=== PATIENT | female | born 1985 | race Caucasian/White ===

== ENCOUNTER 2017-03-15 14:47 | Emergency (ER) | payer MEDICAID, OTHER ==
[~2017-03-15] VITALS: Ht 160 cm; Wt 82.5 kg
[~2017-03-15 14:47] MED LIST: CALC600T11 PO; FERR240T9 PO; PRENAT PO
[2017-03-15 14:55] VITALS: Ht 160 cm; Wt 82.5 kg
[2017-03-15] MEDS ORDERED: ACETAMINOPHEN 325 MG TAB PO ONE (16:00)
[2017-03-15] MEDS ORDERED: IBUP-1542 PO (16:50)
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
== END 2017-03-15 17:03 | disposition home or self-care (01) ==
LOC: FTE 14:47
DX: S63.501A Unspecified sprain of right wrist, initial encounter (principal); V49.50XA Passenger injured in collision with unspecified motor vehicles in traffic accident, initial encounter
CPT/HCPCS: 29125; 72040; 73110; Z7502; Z7610